=== PATIENT | female | born 1955 | race Two or more races ===

== ENCOUNTER 2017-03-19 13:47 | Inpatient (IN) | payer MEDICAID ==
[~2017-03-19] VITALS: Ht 162.6 cm; Wt 104.0 kg
[2017-03-19 14:47] LABS: Basophils # (auto) 0.1 uL; Basophils % (auto) 0.5 % (0.0-2.0); DEFINITIVE VIEW TRANSMISSION; Eosinophils # (auto) 0.9 uL; Eosinophils % (auto) 7.1 % (0.0-7.0); Hematocrit 44.3 % (36.0-46.0); Hemoglobin 14.5 g/dL (12.2-16.2); Lymphocytes # (auto) 3.7 uL; Lymphocytes % (auto) 30.7 % (10.0-50.0); Mean Corpuscular Hemoglobin 28.7 pg (28.0-32.0); Mean Corpuscular Hgb Conc. 32.7 g/dL (32.0-36.0); Mean Corpuscular Volume 87.8 fL (80.0-100.0); Mean Platelet Volume 8.7 fL (7.4-10.4); Monocytes # (auto) 0.7 uL; Monocytes % (auto) 5.7 % (0.0-12.0); Neutrophils # (auto) 6.8 uL; Platelet Count (auto) 271 10^3/uL (140-450); Red Cell Distribution Width 13.1 % (11.6-16.0); White Blood Cell 12.1 10^3/uL (4.4-10.8)
[2017-03-19 15:03] LABS: Albumin 3.3 g/dL (3.4-5.0); Alkaline Phosphatase 100 U/L (45-117); Anion Gap 11 (5-15); Aspartate Aminotransferase 25 U/L (15-37); BUN/Creatinine Ratio 18.4; Bilirubin, Total 0.3 mg/dL (0.2-1.0); Blood Urea Nitrogen 14 mg/dL (7-18); Carbon Dioxide 22 mmol/L (21-32); Chloride 107 mmol/L (98-107); GFR African American 100 mL/min; GFR Non-African American 83 mL/min; Glucose 147 mg/dL (74-106); Magnesium 2.3 mg/dL (1.6-2.6); Potassium 4.1 mmol/L (3.5-5.1); Sodium 140 mmol/L (136-145); Total Protein 7.4 g/dL (6.4-8.2)
[2017-03-19 21:20] LABS: INR 0.97 (0.9-1.15); Partial Thromboplastin Time 25.9 sec (22.64-33.71); Prothrombin Time 10.5 sec (9.37-12.3)
[2017-03-19] MEDS ORDERED: NITROGLYCERIN 0.4 MG SL TAB SL PRN (21:45)
[2017-03-19] MEDS ORDERED: MORPHINE SULF INJ 2 MG/ML SYRINGE 1ML IV PRN (21:45)
[2017-03-19] MEDS ORDERED: predniSONE 20 MG TAB PO ONE (21:45)
[2017-03-19] MEDS ORDERED: ASPirin 81 mg TAB PO ONE (21:45)
[2017-03-19] MEDS ORDERED: DEXTROSE (50%) 50ML SYRG IV PRN (21:45)
[2017-03-19] MEDS: ACCU-CHEK COMFORT CURVE STRIP VI SCH (22:13)
[2017-03-19] MEDS: InsuLIN REG 1unit/0.01ml Soln (100units/ml) SC SCH (22:14)
[2017-03-19] MEDS: ATORVASTATIN 20 MG TAB PO SCH (22:19)
[2017-03-20] VITALS (8 sets, daily range): BP systolic 123–183; BP diastolic 64–82
[2017-03-20] MEDS: TEMAZEPAM 15 MG CAP PO PRN ×2 (00:01→21:42)
[2017-03-20] MEDS ORDERED: ALPR1TAB2 PO (00:20)
[2017-03-20] MEDS ORDERED: METF-312 PO (00:20)
[2017-03-20] MEDS ORDERED: METO25TA62 PO (00:20)
[2017-03-20] MEDS ORDERED: SERT-275 PO (00:20)
[2017-03-20] MEDS ORDERED: MECL12.554 PO (00:20)
[2017-03-20] MEDS ORDERED: LISI-646 PO (00:20)
[2017-03-20] MEDS: ACCU-CHEK COMFORT CURVE STRIP VI SCH ×4 (06:07→21:43)
[2017-03-20] MEDS: InsuLIN REG 1unit/0.01ml Soln (100units/ml) SC SCH ×4 (06:07→21:43)
[2017-03-20 06:30] LABS: Basophils # (auto) 0 uL; Basophils % (auto) 0.2 % (0.0-2.0); Eosinophils # (auto) 0 uL; Eosinophils % (auto) 0.2 % (0.0-7.0); Hematocrit 47.3 % (36.0-46.0); Hemoglobin 15.6 g/dL (12.2-16.2); Lymphocytes # (auto) 2.1 uL; Lymphocytes % (auto) 18.3 % (10.0-50.0); Mean Corpuscular Hemoglobin 28.5 pg (28.0-32.0); Mean Corpuscular Hgb Conc. 32.9 g/dL (32.0-36.0); Mean Corpuscular Volume 86.6 fL (80.0-100.0); Mean Platelet Volume 8.8 fL (7.4-10.4); Monocytes # (auto) 0.1 uL; Monocytes % (auto) 0.9 % (0.0-12.0); Neutrophils # (auto) 9.2 uL; Neutrophils % (auto) 80.4 % (37.0-80.0); Platelet Count (auto) 258 10^3/uL (140-450); Red Cell Distribution Width 13.1 % (11.6-16.0); White Blood Cell 11.5 10^3/uL (4.4-10.8)
[2017-03-20 06:46] LABS: Potassium 4.4 mmol/L (3.5-5.1)
[2017-03-20 06:53] LABS: BUN/Creatinine Ratio 23.4; Calcium 9.2 mg/dL (8.5-10.1)
[2017-03-20] MEDS ORDERED: predniSONE 20 MG TAB PO SCH (10:00)
[2017-03-20] MEDS: LISINOPRIL 10 MG TAB PO SCH (10:04)
[2017-03-20] MEDS: ASPirin 81 mg TAB PO SCH (10:04)
[2017-03-20] MEDS ORDERED: METOPROLOL SUCCINATE XL 50 MG TAB PO ONE (15:45)
[2017-03-20] MEDS: METOPROLOL TARTRATE 25 MG TAB PO SCH ×2 (15:51→21:43)
[2017-03-20] MEDS ORDERED: LORazepam 2MG/ML-1ML VIAL IV PRN (21:00)
[2017-03-20] MEDS: ATORVASTATIN 20 MG TAB PO SCH (21:42)
[2017-03-20 21:58] LABS: Urine Bilirubin Negative (Negative); Urine Blood Negative /uL (Negative); Urine Color Yellow (Yellow); Urine Ketone Negative (Negative); Urine Nitrite Negative (Negative); Urine RBC <1 /hpf (0 - 4); Urine Squamous Epithelial Cell FEW /hpf (<5); Urine Urobilinogen Normal (Negative); Urine pH 5.5 (5.0-8.0)
[2017-03-20 22:00] LABS: Urine Glucose 4+ mg/dL (Normal)
[2017-03-20] MEDS ORDERED: METOPROLOL SUCCINATE XL 50 MG TAB PO SCH (22:00)
[2017-03-21 04:56] VITALS: BP 145/79
[2017-03-21] MEDS: ACCU-CHEK COMFORT CURVE STRIP VI SCH ×2 (06:28→11:33)
[2017-03-21] MEDS: InsuLIN REG 1unit/0.01ml Soln (100units/ml) SC SCH ×2 (06:29→11:34)
[2017-03-21 09:03] VITALS: BP 158/74
[2017-03-21] MEDS: ASPirin 81 mg TAB PO SCH (09:40)
[2017-03-21] MEDS: METOPROLOL TARTRATE 25 MG TAB PO SCH (09:41)
[2017-03-21] MEDS: LISINOPRIL 10 MG TAB PO SCH (09:42)
[2017-03-21] MEDS ORDERED: predniSONE 20 MG TAB PO SCH (10:00)
[2017-03-21 12:18] VITALS: BP 158/74
[2017-03-21 13:28] VITALS: BP 162/77
== END 2017-03-21 14:30 | disposition home or self-care (01) | DRG 48 ==
LOC: ER 13:52 → TELE-WESTW 13:53
PROVIDERS: ADMIT Internal Medicine; ATTEND Internal Medicine
DX: G51.0 Bell's palsy (principal); I10 Essential (primary) hypertension; E11.9 Type 2 diabetes mellitus without complications; E66.9 Obesity, unspecified; F17.200 Nicotine dependence, unspecified, uncomplicated; F41.9 Anxiety disorder, unspecified; I25.10 Atherosclerotic heart disease of native coronary artery without angina pectoris; Z95.1 Presence of aortocoronary bypass graft; Z95.2 Presence of prosthetic heart valve; Z82.49 Family history of ischemic heart disease and other diseases of the circulatory system; Z86.73 Personal history of transient ischemic attack (TIA), and cerebral infarction without residual deficits; Z83.3 Family history of diabetes mellitus; Z68.39 Body mass index [BMI] 39.0-39.9, adult
CPT/HCPCS: 36415; 70450; 71010; 80048; 80053; 81001; 82962; 83036; 83735; 84443; 84484; 85025; 85610; 85730; 93005; 93306; 93886; 94761; J1815

== ENCOUNTER 2019-02-17 16:21 | Emergency (ER) | payer MEDICAID ==
[~2019-02-17] VITALS: Ht 162.6 cm; Wt 91.2 kg
[~2019-02-17 16:21] MED LIST: ALPR1TAB2 PO; LISI-646 PO; MECL12.554 PO; METF-370 PO; METO25TA62 PO; SERT-275 PO
[2019-02-17 16:30] VITALS: BP 174/71
[2019-02-17 17:14] LABS: Basophils # (auto) 0.1 uL; Basophils % (auto) 0.8 % (0.0-2.0); Eosinophils # (auto) 0.5 uL; Eosinophils % (auto) 4.3 % (0.0-7.0); Hemoglobin 14.8 g/dL (12.2-16.2); Mean Corpuscular Hemoglobin 29.2 pg (28.0-32.0); Mean Corpuscular Hgb Conc. 33.5 g/dL (32.0-36.0); Mean Corpuscular Volume 86.9 fL (80.0-100.0); Monocytes # (auto) 0.9 uL; Monocytes % (auto) 7.4 % (0.0-12.0); Neutrophils # (auto) 6.2 uL; Neutrophils % (auto) 53.5 % (37.0-80.0); Nucleated Red Blood Cells % 0.3 %; Platelet Count (auto) 239 10^3/uL (140-450); Red Blood Cells 5.06 10^6/uL (4.0-5.20); White Blood Cell 11.7 10^3/uL (4.4-10.8)
[2019-02-17 17:22] LABS: Albumin 3.5 g/dL (3.4-5.0); Anion Gap 9 (5-15); Blood Urea Nitrogen 11 mg/dL (7-18); Calcium 8.8 mg/dL (8.5-10.1); Carbon Dioxide 21 mmol/L (21-32); Chloride 107 mmol/L (98-107); Glucose 245 mg/dL (74-106); Potassium 3.6 mmol/L (3.5-5.1); Sodium 137 mmol/L (136-145)
[2019-02-17 17:25] LABS: Alanine Aminotransferase 31 U/L (13-56); Alkaline Phosphatase 142 U/L (45-117); Aspartate Aminotransferase 34 U/L (15-37); BUN/Creatinine Ratio 14.5; Bilirubin, Total 0.2 mg/dL (0.2-1.0); GFR African American 99 mL/min; GFR Non-African American 82 mL/min; Total Protein 7.3 g/dL (6.4-8.2)
== END 2019-02-17 20:52 | disposition left against medical advice (07) ==
LOC: ER 16:21
DX: R07.9 Chest pain, unspecified (principal); Z53.21 Procedure and treatment not carried out due to patient leaving prior to being seen by health care provider
CPT/HCPCS: 36415; 71046; 80053; 84484; 85025; 93005

== ENCOUNTER 2021-03-04 10:45 | Inpatient (IN) | payer MEDICAID ==
[~2021-03-04] VITALS: Ht 162.6 cm; Wt 93.3 kg
[~2021-03-04 10:45] MED LIST changes: +MECL12.514 PO; -MECL12.554 PO; -METO25TA62 PO; +METO25TA93 PO
[2021-03-04] MEDS ORDERED: ASPirin 81 mg TAB PO ONE (11:15)
[2021-03-04 12:02] LABS: Basophils # (auto) 0.1 10 ^3/uL (0-0.2); Basophils % (auto) 0.6 % (0.0-2.0); Eosinophils # (auto) 0.6 10 ^3/uL (0-0.8); Eosinophils % (auto) 4.6 % (0.0-7.0); Hematocrit 41.1 % (36.0-46.0); Hemoglobin 13.7 g/dL (12.2-16.2); Lymphocytes # (auto) 3.2 10 ^3/uL (0.4-5.4); Lymphocytes % (auto) 23.7 % (10.0-50.0); Mean Corpuscular Hgb Conc. 33.3 g/dL (32.0-36.0); Mean Corpuscular Volume 87.1 fL (80.0-100.0); Monocytes # (auto) 0.9 10 ^3/uL (0-1.3); Monocytes % (auto) 6.4 % (0.0-12.0); Neutrophils # (auto) 8.7 10 ^3/uL (1.6-8.6); Neutrophils % (auto) 64.7 % (37.0-80.0); Nucleated Red Blood Cells % 0.1 %; Platelet Count (auto) 226 10^3/uL (140-450); Red Blood Cells 4.72 10^6/uL (4.0-5.20); Red Cell Distribution Width 13.3 % (11.8-14.3); White Blood Cell 13.5 10^3/uL (4.4-10.8)
[2021-03-04 12:18] LABS: Albumin 3.4 g/dL (3.4-5.0); Calcium 8.7 mg/dL (8.5-10.1); Magnesium 1.7 mg/dL (1.6-2.6); Potassium 4.2 mmol/L (3.5-5.1)
[2021-03-04 12:22] LABS: INR 1.07 (0.9-1.15); Partial Thromboplastin Time 28.1 sec (23.0-31.2)
[2021-03-04 12:24] LABS: BUN/Creatinine Ratio 24.1; Bilirubin, Total 0.6 mg/dL (0.2-1.0); Total Protein 7.1 g/dL (6.4-8.2)
[2021-03-04] MEDS ORDERED: ENOXAPARIN SOD 60 MG/0.6 ML SYRINGE SC ONE (14:30)
[2021-03-04] MEDS ORDERED: hydrALAZINE HCL 20 MG/ML VL IV PRN (15:15)
[2021-03-04] MEDS ORDERED: MORPHINE SULF INJ 2 MG/ML SYRINGE 1ML IV PRN ×2 (15:15)
[2021-03-04] MEDS ORDERED: ACETAMINOPHEN 500 MG TAB PO PRN (15:15)
[2021-03-04] MEDS ORDERED: NITROGLYCERIN 0.4 MG SL TAB SL PRN (15:15)
[2021-03-04] MEDS ORDERED: ONDANSETRON HCL 4 MG/2 ML VIAL IV PRN (15:15)
[2021-03-04] MEDS ORDERED: HYDROcodone-ACET 5/325MG TAB PO PRN (15:15)
[2021-03-04] MEDS: NITROGLYCERIN 0.4MG/HR TOPICAL PATCH TD SCH (15:51)
[2021-03-04 17:02] LABS: Urine Bacteria FEW /hpf (None Seen); Urine Blood Negative /uL (Negative); Urine Specific Gravity 1.013 (1.001-1.035); Urine WBC 6 /hpf (0 - 5)
[2021-03-04 17:15] LABS: CRP High Sensitivity 0.82 mg/dL (< 0.3)
[2021-03-04] MEDS ORDERED: SERT-274 PO (17:58)
[2021-03-04] MEDS ORDERED: AMLO-489 PO (17:58)
[2021-03-04] MEDS ORDERED: LEVO25TA6 PO (17:58)
[2021-03-04] MEDS ORDERED: ASPI-325 PO (17:58)
[2021-03-04] MEDS ORDERED: BUSP10TA90 PO (17:58)
[2021-03-04] MEDS ORDERED: ATOR20TA50 PO (17:58)
[2021-03-04 18:00] VITALS: BP 148/68
[2021-03-04 22:00] VITALS: BP 151/73
[2021-03-04] MEDS ORDERED: ATORVASTATIN 20 MG TAB PO SCH (22:00)
[2021-03-04] MEDS: METOPROLOL TARTRATE 25 MG TAB PO SCH (22:05)
[2021-03-05 05:00] VITALS: BP 136/81
[2021-03-05 06:44] LABS: Basophils # (auto) 0.1 10 ^3/uL (0-0.2); Basophils % (auto) 0.7 % (0.0-2.0); Eosinophils # (auto) 0.7 10 ^3/uL (0-0.8); Eosinophils % (auto) 7.5 % (0.0-7.0); Hematocrit 38.6 % (36.0-46.0); Hemoglobin 13.2 g/dL (12.2-16.2); Lymphocytes % (auto) 33.8 % (10.0-50.0); Mean Corpuscular Hemoglobin 29.6 pg (28.0-32.0); Mean Corpuscular Hgb Conc. 34.3 g/dL (32.0-36.0); Mean Corpuscular Volume 86.4 fL (80.0-100.0); Monocytes # (auto) 0.7 10 ^3/uL (0-1.3); Neutrophils # (auto) 4.4 10 ^3/uL (1.6-8.6); Nucleated Red Blood Cells % 0.1 %; Platelet Count (auto) 200 10^3/uL (140-450); Red Blood Cells 4.47 10^6/uL (4.0-5.20); White Blood Cell 8.8 10^3/uL (4.4-10.8)
[2021-03-05 07:15] LABS: BUN/Creatinine Ratio 21.4; Calcium 8.4 mg/dL (8.5-10.1); Potassium 3.8 mmol/L (3.5-5.1)
[2021-03-05 08:00] VITALS: BP 146/69
[2021-03-05] MEDS ORDERED: LIDOCAINE 2%HCL (LOCAL ANESTH.) INJ 20ML MDV ONE (08:22)
[2021-03-05] MEDS ORDERED: IODIXANOL 320MG/ML 100ML BTL IV ONE (08:22)
[2021-03-05] MEDS ORDERED: ASPirin-EC 81 mg tab PO SCH (10:00)
[2021-03-05] MEDS ORDERED: LISINOPRIL 10 MG TAB PO SCH (10:00)
[2021-03-05] MEDS ORDERED: FAMOTIDINE 20 MG TAB PO SCH (10:00)
[2021-03-05] MEDS ORDERED: ENOXAPARIN SOD 60 MG/0.6 ML SYRINGE SC SCH (10:00)
[2021-03-05] MEDS: METOPROLOL TARTRATE 25 MG TAB PO SCH (10:27)
[2021-03-05] MEDS: NITROGLYCERIN 0.4MG/HR TOPICAL PATCH TD SCH (10:28)
[2021-03-05 12:00] VITALS: BP 143/67
[2021-03-05] MEDS ORDERED: NITR0.4S29 SL (13:31)
== END 2021-03-05 14:51 | disposition home or self-care (01) | DRG 190 ==
LOC: ER 10:45 → TELE 15:08 → TELE-WESTW 17:02
PROVIDERS: ADMIT Nurse Practitioner Acute Care; ATTEND Internal Medicine
DX: I21.4 Non-ST elevation (NSTEMI) myocardial infarction (principal); I50.43 Acute on chronic combined systolic (congestive) and diastolic (congestive) heart failure; R65.10 Systemic inflammatory response syndrome (SIRS) of non-infectious origin without acute organ dysfunction; E11.65 Type 2 diabetes mellitus with hyperglycemia; I11.0 Hypertensive heart disease with heart failure; Z95.1 Presence of aortocoronary bypass graft; I35.0 Nonrheumatic aortic (valve) stenosis; E03.9 Hypothyroidism, unspecified; E66.9 Obesity, unspecified; E78.5 Hyperlipidemia, unspecified; F41.9 Anxiety disorder, unspecified; F32.9 Major depressive disorder, single episode, unspecified; Z53.20 Procedure and treatment not carried out because of patient's decision for unspecified reasons; I25.10 Atherosclerotic heart disease of native coronary artery without angina pectoris; Z20.822 Contact with and (suspected) exposure to COVID-19; Z79.4 Long term (current) use of insulin; I25.2 Old myocardial infarction; Z95.3 Presence of xenogenic heart valve; Z79.899 Other long term (current) drug therapy; Z82.3 Family history of stroke; Z82.49 Family history of ischemic heart disease and other diseases of the circulatory system; Z83.3 Family history of diabetes mellitus; Z87.891 Personal history of nicotine dependence; Z68.35 Body mass index [BMI] 35.0-35.9, adult
CPT/HCPCS: 36415; 71045; 80048; 80053; 80061; 81001; 83036; 83735; 83880; 84443; 84484; 85025; 85610; 85730; 86141; 87426; 93005; 93306; 96372; G0378; Q9967

== ENCOUNTER 2021-04-17 13:26 | Inpatient (IN) | payer MEDICAID ==
[~2021-04-17] VITALS: Ht 162.6 cm; Wt 91.5 kg
[~2021-04-17 13:26] MED LIST changes: -ALPR1TAB2 PO; +AMLO-489 PO; +ASPI-325 PO; +ATOR20TA50 PO; +BUSP10TA90 PO; +LEVO25TA6 PO; -LISI-646 PO; +LISI20TA28 PO; +NITR0.4S29 SL; -SERT-275 PO; +SERT25TA14 PO; +SERT50TA19 PO
[2021-04-17 14:10] LABS: Basophils # (auto) 0 10 ^3/uL (0-0.2); Basophils % (auto) 0.3 % (0.0-2.0); Eosinophils # (auto) 0.4 10 ^3/uL (0-0.8); Eosinophils % (auto) 3.5 % (0.0-7.0); Hematocrit 39.9 % (36.0-46.0); Hemoglobin 13.6 g/dL (12.2-16.2); Lymphocytes # (auto) 0.9 10 ^3/uL (0.4-5.4); Lymphocytes % (auto) 7.1 % (10.0-50.0); Mean Corpuscular Hemoglobin 29.8 pg (28.0-32.0); Mean Corpuscular Volume 87.7 fL (80.0-100.0); Monocytes # (auto) 0.4 10 ^3/uL (0-1.3); Neutrophils # (auto) 10.6 10 ^3/uL (1.6-8.6); Neutrophils % (auto) 86.1 % (37.0-80.0); Platelet Count (auto) 235 10^3/uL (140-450); Red Blood Cells 4.55 10^6/uL (4.0-5.20); Red Cell Distribution Width 13.5 % (11.8-14.3); White Blood Cell 12.3 10^3/uL (4.4-10.8)
[2021-04-17] MEDS ORDERED: ONDANSETRON HCL 4 MG/2 ML VIAL IV ONE (14:15)
[2021-04-17] MEDS ORDERED: MORPHINE SULFATE 4 MG/ML SYR/VIAL IV ONE (14:15)
[2021-04-17 14:25] LABS: Albumin 3.5 g/dL (3.4-5.0); Calcium 8.9 mg/dL (8.5-10.1); Potassium 4.3 mmol/L (3.5-5.1)
[2021-04-17 14:29] LABS: BUN/Creatinine Ratio 34.2; Total Protein 7.6 g/dL (6.4-8.2)
[2021-04-17] MEDS ORDERED: ONDANSETRON HCL 4 MG/2 ML VIAL IV PRN (18:30)
[2021-04-17] MEDS ORDERED: NITROGLYCERIN 0.4 MG SL TAB SL PRN (18:30)
[2021-04-17] MEDS ORDERED: ACETAMINOPHEN 500 MG TAB PO PRN (18:30)
[2021-04-17] MEDS ORDERED: MORPHINE SULF INJ 2 MG/ML SYRINGE 1ML IV PRN (18:30)
[2021-04-17] MEDS: LACTATED RINGER'S 1,000 ML IV SCH (19:30)
[2021-04-17] MEDS ORDERED: IOHEXOL 300 MG/ML 100ML BOTTLE IJ ONE (21:07)
[2021-04-17] MEDS: HYDROcodone-ACET 5/325MG TAB PO PRN (22:45)
[2021-04-17] MEDS: busPIRone HCL 10 MG TAB PO SCH (22:49)
[2021-04-17] MEDS: ATORVASTATIN 20 MG TAB PO SCH (22:49)
[2021-04-18] VITALS (8 sets, daily range): BP systolic 99–117; BP diastolic 56–94
[2021-04-18] MEDS: PIPERACILLIN-TAZOB 3.375GM 100 ML IV SCH ×5 (01:21→23:59)
[2021-04-18] MEDS: MORPHINE SULF INJ 2 MG/ML SYRINGE 1ML IV PRN (01:21)
[2021-04-18] MEDS: LACTATED RINGER'S 1,000 ML IV SCH ×2 (04:30→10:08)
[2021-04-18 06:10] LABS: Basophils # (auto) 0 10 ^3/uL (0-0.2); Basophils % (auto) 0.4 % (0.0-2.0); Eosinophils # (auto) 0 10 ^3/uL (0-0.8); Eosinophils % (auto) 0.4 % (0.0-7.0); Hematocrit 34.4 % (36.0-46.0); Mean Corpuscular Hemoglobin 30.3 pg (28.0-32.0); Mean Corpuscular Hgb Conc. 34.8 g/dL (32.0-36.0); Monocytes # (auto) 0.4 10 ^3/uL (0-1.3); Monocytes % (auto) 5.5 % (0.0-12.0); Neutrophils # (auto) 6.4 10 ^3/uL (1.6-8.6); Neutrophils % (auto) 80.7 % (37.0-80.0); Platelet Count (auto) 199 10^3/uL (140-450); Red Blood Cells 3.96 10^6/uL (4.0-5.20); Red Cell Distribution Width 13.2 % (11.8-14.3); White Blood Cell 7.9 10^3/uL (4.4-10.8)
[2021-04-18 06:25] LABS: Albumin 2.9 g/dL (3.4-5.0); Calcium 7.7 mg/dL (8.5-10.1); Potassium 3.8 mmol/L (3.5-5.1)
[2021-04-18 06:29] LABS: BUN/Creatinine Ratio 35.6; Total Protein 6.6 g/dL (6.4-8.2)
[2021-04-18] MEDS: busPIRone HCL 10 MG TAB PO SCH ×3 (06:39→21:59)
[2021-04-18] MEDS: LEVOTHYROXINE SODIUM 25 MCG TAB PO SCH (06:40)
[2021-04-18] MEDS: FAMOTIDINE 20 MG TAB PO SCH (10:03)
[2021-04-18] MEDS: ASPirin-EC 81 mg tab PO SCH (10:03)
[2021-04-18] MEDS ORDERED: INSLANTI SC (10:37)
[2021-04-18] MEDS ORDERED: MECL25TA18 PO (10:37)
[2021-04-18] MEDS ORDERED: DEXTROSE (50%) 50ML SYRG IV PRN (12:15)
[2021-04-18] MEDS: ACCU-CHEK COMFORT CURVE STRIP VI SCH ×2 (17:57→21:58)
[2021-04-18] MEDS: InsuLIN REG 1unit/0.01ml Soln (100units/ml) SC SCH ×2 (17:58→21:58)
[2021-04-18] MEDS: INSULIN LANTUS (GLARGINE) 1 /0.01ml (100units/ml) SC SCH (21:58)
[2021-04-18] MEDS: ATORVASTATIN 20 MG TAB PO SCH (21:59)
[2021-04-18] MEDS: HYDROcodone-ACET 5/325MG TAB PO PRN (21:59)
[2021-04-19] MEDS: MORPHINE SULF INJ 2 MG/ML SYRINGE 1ML IV PRN ×3 (00:01→21:01)
[2021-04-19] MEDS ORDERED: DOCU100T15 PO (05:32)
[2021-04-19 05:50] VITALS: BP 104/54
[2021-04-19] MEDS: ACCU-CHEK COMFORT CURVE STRIP VI SCH ×4 (06:27→22:04)
[2021-04-19] MEDS: PIPERACILLIN-TAZOB 3.375GM 100 ML IV SCH ×3 (06:30→18:11)
[2021-04-19] MEDS: busPIRone HCL 10 MG TAB PO SCH ×3 (06:37→22:04)
[2021-04-19] MEDS: LEVOTHYROXINE SODIUM 25 MCG TAB PO SCH (06:38)
[2021-04-19] MEDS: InsuLIN REG 1unit/0.01ml Soln (100units/ml) SC SCH ×4 (06:38→22:08)
[2021-04-19 08:52] VITALS: BP 96/65
[2021-04-19] MEDS: ASPirin-EC 81 mg tab PO SCH (09:39)
[2021-04-19] MEDS: FAMOTIDINE 20 MG TAB PO SCH (09:39)
[2021-04-19 13:05] VITALS: BP 121/76
[2021-04-19 16:42] VITALS: BP 133/84
[2021-04-19 22:00] VITALS: BP 116/64
[2021-04-19] MEDS: ATORVASTATIN 20 MG TAB PO SCH (22:04)
[2021-04-19] MEDS: INSULIN LANTUS (GLARGINE) 1 /0.01ml (100units/ml) SC SCH (22:07)
[2021-04-20] MEDS: PIPERACILLIN-TAZOB 3.375GM 100 ML IV SCH ×4 (00:04→17:33)
[2021-04-20 05:00] VITALS: BP 111/65
[2021-04-20] MEDS: busPIRone HCL 10 MG TAB PO SCH ×3 (06:23→22:28)
[2021-04-20] MEDS: LEVOTHYROXINE SODIUM 25 MCG TAB PO SCH (06:23)
[2021-04-20 06:27] LABS: Basophils # (auto) 0.1 10 ^3/uL (0-0.2); Basophils % (auto) 0.6 % (0.0-2.0); Eosinophils # (auto) 0.6 10 ^3/uL (0-0.8); Eosinophils % (auto) 7.3 % (0.0-7.0); Hematocrit 33.6 % (36.0-46.0); Hemoglobin 11.8 g/dL (12.2-16.2); Lymphocytes # (auto) 2.9 10 ^3/uL (0.4-5.4); Lymphocytes % (auto) 34.6 % (10.0-50.0); Mean Corpuscular Hemoglobin 30.6 pg (28.0-32.0); Mean Corpuscular Hgb Conc. 35.2 g/dL (32.0-36.0); Mean Corpuscular Volume 86.8 fL (80.0-100.0); Monocytes # (auto) 0.7 10 ^3/uL (0-1.3); Monocytes % (auto) 8.8 % (0.0-12.0); Neutrophils % (auto) 48.7 % (37.0-80.0); Nucleated Red Blood Cells % 0.2 %; Platelet Count (auto) 218 10^3/uL (140-450); Red Blood Cells 3.87 10^6/uL (4.0-5.20); Red Cell Distribution Width 12.8 % (11.8-14.3); White Blood Cell 8.3 10^3/uL (4.4-10.8)
[2021-04-20] MEDS: ACCU-CHEK COMFORT CURVE STRIP VI SCH ×4 (06:58→22:28)
[2021-04-20 07:00] LABS: Calcium 8.3 mg/dL (8.5-10.1); Potassium 3.3 mmol/L (3.5-5.1)
[2021-04-20] MEDS: InsuLIN REG 1unit/0.01ml Soln (100units/ml) SC SCH ×4 (07:00→22:34)
[2021-04-20 07:03] LABS: BUN/Creatinine Ratio 21.4
[2021-04-20 09:00] VITALS: BP 117/60
[2021-04-20] MEDS: ASPirin-EC 81 mg tab PO SCH (09:30)
[2021-04-20] MEDS: FAMOTIDINE 20 MG TAB PO SCH (09:31)
[2021-04-20 13:00] VITALS: BP 106/63
[2021-04-20 17:00] VITALS: BP 120/75
[2021-04-20 22:00] VITALS: BP 121/75
[2021-04-20] MEDS: ATORVASTATIN 20 MG TAB PO SCH (22:28)
[2021-04-20] MEDS: INSULIN LANTUS (GLARGINE) 1 /0.01ml (100units/ml) SC SCH (22:34)
[2021-04-21] MEDS: PIPERACILLIN-TAZOB 3.375GM 100 ML IV SCH ×4 (00:02→18:00)
[2021-04-21] MEDS: MORPHINE SULF INJ 2 MG/ML SYRINGE 1ML IV PRN (04:58)
[2021-04-21 05:00] VITALS: BP 109/66
[2021-04-21] MEDS: busPIRone HCL 10 MG TAB PO SCH ×2 (06:34→14:30)
[2021-04-21] MEDS: LEVOTHYROXINE SODIUM 25 MCG TAB PO SCH (06:34)
[2021-04-21] MEDS: ACCU-CHEK COMFORT CURVE STRIP VI SCH ×3 (06:34→17:25)
[2021-04-21] MEDS: InsuLIN REG 1unit/0.01ml Soln (100units/ml) SC SCH ×3 (06:37→17:41)
[2021-04-21 09:00] VITALS: BP 117/66
[2021-04-21] MEDS: FAMOTIDINE 20 MG TAB PO SCH (09:55)
[2021-04-21] MEDS: ASPirin-EC 81 mg tab PO SCH (09:55)
[2021-04-21 13:00] VITALS: BP_SYST 110; BP_SYST 149; BP_DIAS 69; BP_DIAS 72
[2021-04-21 16:54] VITALS: BP 110/71
== END 2021-04-21 20:10 | disposition short-term general hospital (02) | DRG 720 ==
LOC: ER 13:26 → TELE 18:30 → TELE-WESTW 23:30
PROVIDERS: ADMIT Nurse Practitioner Acute Care; ATTEND Internal Medicine Pulmonary Disease
DX: A41.9 Sepsis, unspecified organism (principal); I50.43 Acute on chronic combined systolic (congestive) and diastolic (congestive) heart failure; I11.0 Hypertensive heart disease with heart failure; R65.20 Severe sepsis without septic shock; I25.10 Atherosclerotic heart disease of native coronary artery without angina pectoris; K80.20 Calculus of gallbladder without cholecystitis without obstruction; F32.9 Major depressive disorder, single episode, unspecified; Z20.822 Contact with and (suspected) exposure to COVID-19; E11.9 Type 2 diabetes mellitus without complications; E78.5 Hyperlipidemia, unspecified; I35.2 Nonrheumatic aortic (valve) stenosis with insufficiency; Z87.891 Personal history of nicotine dependence; Z95.1 Presence of aortocoronary bypass graft; Z95.2 Presence of prosthetic heart valve; Z91.013 Allergy to seafood
CPT/HCPCS: 36415; 71046; 71260; 74177; 80048; 80053; 82962; 83735; 83880; 84484; 85025; 87040; 87081; 87086; 87426; 93005; 96374; 96375; G0378; J1815; J2405; J2543

== ENCOUNTER 2022-02-10 10:21 | Emergency (ER) | payer MEDICARE, MEDICAID ==
[~2022-02-10] VITALS: Ht 1 cm; Wt 1.0 kg
[~2022-02-10 10:21] MED LIST changes: +DOCU100T15 PO; +INSLANTI SC; -LISI20TA28 PO; -MECL12.514 PO; +MECL25TA18 PO; -SERT50TA19 PO
[2022-02-10] MEDS ORDERED: EPINEPHrine HCL 1 MG/10 ML SYRG IV ONE (10:22)
[2022-02-10] MEDS ORDERED: SODIUM BICARBONATE 8.4% INJ 50ML SYRINGE IV ONE (10:22)
[2022-02-10] MEDS ORDERED: CALCIUM CHLOR(10%) 100MG/ML 10ML SYRINGE IV ONE (10:22)
[2022-02-10 10:31] VITALS: BP_SYST 0
== END 2022-02-10 17:00 ==
LOC: ER 10:21 → EDUNIT# 10:21 → EDBD 10:21 → ER 17:00
DX: I46.9 Cardiac arrest, cause unspecified (principal); R06.89 Other abnormalities of breathing; R41.82 Altered mental status, unspecified; F32.9 Major depressive disorder, single episode, unspecified; E11.9 Type 2 diabetes mellitus without complications; E78.5 Hyperlipidemia, unspecified; I10 Essential (primary) hypertension; W06.XXXA Fall from bed, initial encounter; Y93.89 Activity, other specified; Y92.89 Other specified places as the place of occurrence of the external cause; Y99.8 Other external cause status
CPT/HCPCS: 31500; 92950; 92960; 99291; J0171